=== PATIENT | female | born 1945 | race Caucasian/White ===

== ENCOUNTER 2017-09-28 14:59 | Observation (INO) | payer OTHER ==
[~2017-09-28] VITALS: Ht 162.6 cm; Wt 79.7 kg
[~2017-09-28 14:59] MED LIST: MOTRIN600 MG PO
[2017-09-28 15:34] LABS: HEMATOCRIT 39.3 % (36.0-46.0); HEMOGLOBIN 13.9 G/DL (11.9-15.5); MCH 30.6 PG (29.0-34.0); MCHC 35.4 G/DL (30.0-36.0); MCV 86.6 FL (83-99); PLATELET COUNT 262 K/uL (156-360); RBC DIS.WIDTH-CV 12.1 % (11.8-14.6); RBC DIS.WIDTH-SD 38.5 % (39-53); RED BLOOD COUNT 4.54 M/uL (3.80-5.20); WHITE BLOOD COUNT 9.1 K/uL (4.1-10.2)
[2017-09-28 15:51] LABS: CHLORIDE 101 mEq/L (99-109); POTASSIUM 4.2 mEq/L (3.7-5.4); SODIUM 136 mEq/L (136-147)
[2017-09-28 15:52] LABS: GLUCOSE 239 mg/dL (70-99)
[2017-09-28 15:56] LABS: GFR ESTIMATE (CALCULATED) 58 mL/min/
[2017-09-28 15:57] LABS: UREA NITROGEN (BUN) 16 mg/dL (9-23)
[2017-09-28 16:00] LABS: TROP-I INTERPRETATION NEGATIVE; TROPONIN-I < 0.01 ng/mL (0.0-0.30)
[2017-09-28] MEDS ORDERED: FLONASE16 G1 BOTH NARES (18:47)
[2017-09-28] MEDS ORDERED: PULMICORT FLE180 MCG IH (18:47)
[2017-09-28] MEDS ORDERED: ZESTRIL2.5 MG PO (18:48)
[2017-09-28] MEDS ORDERED: LEVO-T112 MCG PO (18:48)
[2017-09-28] MEDS ORDERED: AMARYL2 MG PO ×2 (18:49)
[2017-09-28] MEDS ORDERED: PRAVACHOL20 MG PO (18:49)
[2017-09-28 18:58] LABS: TROP-I INTERPRETATION NEGATIVE; TROPONIN-I < 0.01 ng/mL (0.0-0.30)
[2017-09-28] MEDS ORDERED: NAPROSYN500 MG PO (19:22)
[2017-09-28] MEDS ORDERED: FLEXERIL10 MG PO (19:22)
[2017-09-28 20:58] LABS: ALBUMIN 4.2 G/DL (3.2-4.8); ALKALINE PHOSPHATASE 51 IU/L (3-129)
[2017-09-28 20:59] LABS: DIRECT BILIRUBIN 0.1 mg/dL (0.0-0.3)
[2017-09-28 21:15] LABS: ALT (GPT) 22 IU/L (3-49); AST (GOT) 19 IU/L (2-34); LIPASE 18 U/L (1.0-51.0); TOTAL BILIRUBIN 0.4 MG/DL (0.0-1.0); TOTAL PROTEIN 7.1 G/DL (6.4-8.3)
[2017-09-28 22:56] VITALS: BP 162/79
[2017-09-29 01:08] LABS: TROP-I INTERPRETATION NEGATIVE; TROPONIN-I < 0.01 ng/mL (0.0-0.30)
[2017-09-29 03:50] VITALS: BP 143/65
[2017-09-29 07:21] VITALS: BP 131/65
[2017-09-29 08:19] LABS: TROP-I INTERPRETATION NEGATIVE; TROPONIN-I < 0.01 ng/mL (0.0-0.30)
[2017-09-29] MEDS ORDERED: AZITHROMYCIN250 MG PO (08:25)
[2017-09-29] MEDS ORDERED: ASPIRIN EC325 MG PO (08:25)
== END 2017-09-29 11:06 | disposition home or self-care (01) ==
LOC: EME 14:59 → EDOF 21:21 → 5WEST 21:21 → ENRESERV 21:22 → 5WEST 22:38 → ENPENDDIS 09-29 → 5WEST 09-29 11:06
PROVIDERS: Hospitalist; Physician Assistant
DX: R07.89 Other chest pain (principal); E11.9 Type 2 diabetes mellitus without complications; J45.909 Unspecified asthma, uncomplicated; E78.5 Hyperlipidemia, unspecified; I10 Essential (primary) hypertension; E03.9 Hypothyroidism, unspecified; K44.9 Diaphragmatic hernia without obstruction or gangrene; K76.0 Fatty (change of) liver, not elsewhere classified; Z87.891 Personal history of nicotine dependence; Z88.2 Allergy status to sulfonamides; Z88.5 Allergy status to narcotic agent
CPT/HCPCS: 71046; 71275; 80048; 80076; 82948; 83690; 84484; 85027; 93005; 94640; 99281; 99285; G0378; J1644; J1815; J7040